=== PATIENT | female | born 1975 | race African-American/Black ===

== ENCOUNTER 2016-06-02 17:55 | Emergency (ER) | payer OTHER ==
[~2016-06-02] VITALS: Ht 157.5 cm; Wt 101.6 kg
[~2016-06-02 17:55] MED LIST: AZITHROMYCIN 2250 MG PO; CIPROFLOXACIN500 M1 PO; FENTANYL PA50 MCG/HR TP; FENTANYL PATCH75 MCG TOP; FENTANYL PATCH75 MCG TP; FLEXERIL PO; HUMIRA40 MG/0.8 SQ; LYRICA150 MG PO; MEDROL DOSPAK21 TAB PO; METFORMIN HCL1000 M1 PO; NABUMETONE 500500 M1 PO; NORTRIPTYLINE H50 MG PO; PERCOCET 10-321 EACH PO; PERCOCET 5-3251 EACH PO; PERCOCET 7.5-31 EACH PO; PHENERGAN 25 MG25 M1 PO; PREDNISONE 10 M10 M1 PO; PREDNISONE 20 M20 M1 PO; TESSALON PERLE100 MG PO; VENTOLIN HFA 1818 GM INH; ZANAFLEX4 M1 PO
[2016-06-02] MEDS ORDERED: FENTANYL 1100 MCG/HR TRANSDERM (18:19)
[2016-06-02] MEDS ORDERED: NAPROSYN500 MG PO (18:47)
== END 2016-06-02 19:13 | disposition home or self-care (01) ==
LOC: ER 17:55
DX: S16.1XXA Strain of muscle, fascia and tendon at neck level, initial encounter (principal); E11.9 Type 2 diabetes mellitus without complications; G43.909 Migraine, unspecified, not intractable, without status migrainosus; G89.29 Other chronic pain; Z90.49 Acquired absence of other specified parts of digestive tract; Z88.0 Allergy status to penicillin; W22.8XXA Striking against or struck by other objects, initial encounter; Y93.89 Activity, other specified; Y92.512 Supermarket, store or market as the place of occurrence of the external cause; Y99.8 Other external cause status

== ENCOUNTER 2016-10-01 11:15 | Emergency (ER) | payer OTHER ==
[~2016-10-01] VITALS: Ht 157.5 cm; Wt 101.2 kg
--- NOTE | ~2016-10-01 | EKG ---
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 : 1975 Requested By: Sy Hull Order Number: [id number] MD: Kain Dominguez Measurements Intervals [place] Rate: 63 P: 50 [place]: 137 QRS: 22 QRSD: 74 T: 4 QT: 403 QTc: 413 Interpretive Statements Sinus rhythm Nonspecific T wave abnormality Compared to ECG 07/23/2015 12:06:58 No significant changes Electronically Signed On 10-03-2016 12:47:47 CDT by Kain Dominguez [email or web address] <ELECTRONICALLY SIGNED> By: Kain Dominguez MD, [facility] 10/03/16 1247 1317 1317 Kain Dominguez MD, FACC /EPI
[~2016-10-01 11:15] MED LIST changes: +FENTANYL 1100 MCG/HR TRANSDERM; +NAPROSYN500 MG PO
[2016-10-01 12:22] LABS: MANUAL DIFF YES; MCH 25.2 pg (26.0-34.0); MCHC 31.4 g/dL (28.0-37.0); MCV 80.2 fL (80.0-100.0); PLATELET COUNT 211 thou/uL (150-400); RBC 4.36 mil/uL (4.20-5.00); RDW 17.1 % (10.5-14.5); WBC 3.5 thou/uL (4.0-11.0)
[2016-10-01 12:28] LABS: CALCIUM 8.9 mg/dL (8.5-10.1); CREATININE 0.7 mg/dL (0.6-1.0); POTASSIUM 3.6 mmol/L (3.5-5.1)
[2016-10-01 12:47] LABS: ABSOLUTE NEUTROPHILS 1.4 thou/uL (1.4-8.2); TOTAL CELL COUNT 100
[2016-10-01 12:48] LABS: ANISOCYTOSIS 1+
[2016-10-01] MEDS ORDERED: ZPAK PO (13:46)
== END 2016-10-01 14:06 | disposition home or self-care (01) ==
LOC: ER 11:15
PROVIDERS: Emergency Medicine
DX: J06.9 Acute upper respiratory infection, unspecified (principal); J04.0 Acute laryngitis; E11.9 Type 2 diabetes mellitus without complications; G43.909 Migraine, unspecified, not intractable, without status migrainosus; Z86.73 Personal history of transient ischemic attack (TIA), and cerebral infarction without residual deficits; Z90.49 Acquired absence of other specified parts of digestive tract; Z88.1 Allergy status to other antibiotic agents

== ENCOUNTER 2016-12-01 12:33 | Inpatient (IN) | payer OTHER ==
[~2016-12-01] VITALS: Ht 157.5 cm; Wt 101.2 kg
--- NOTE | ~2016-12-01 | EKG ---
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
--- NOTE | ~2016-12-01 | EKG ---
[address] [address] ELECTROCARDIOGRAM REPORT Name: TODD DOWNING Room #: 433-I ADM IN M.R.#: [id number] Admission: 12/01/16 Attend Phys: Jarret Haq DO Discharge: Date of : [birth year] Report #: [id number] THIS REPORT FOR: //name// 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
--- NOTE | ~2016-12-01 | EKG ---
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
--- NOTE | ~2016-12-01 | 2DMMODE ---
[facility] [address] [place] [address] 2 D/M-MODE ECHOCARDIOGRAM Name: TODD DOWNING Room #: 433-I ADM IN [facility].#: [id number] Admission: 12/01/16 Attend Phys: Jarret Haq, Discharge: Date of : [birth year] Date of Service: 12/05/16 0937 Report #: [id number] THIS REPORT FOR: //name// APPROVED REPORT Study performed: 12/05/2016 08:27:07 EXAM: Comprehensive 2D, Doppler, and color-flow Echocardiogram Patient Location: Echo lab Room #: [facility] Status: routine BSA: 2.01 HR: 56 bpm BP: 142/81 mmHg Rhythm: NSR Other Information Study Quality: Adequate Technically limited study due to UNCOOPERATIVE PATIENT. UNABLE TO COMPLETE EXAM. NOT ALL MEASUREMENTS TAKEN. Indications Syncope Chest Pain DM 2D Dimensions RVDd: 36.62 mm LVEF(%): 61.45 (>50%) IVSd: 9.08 (7-11mm) LVOT Diam: 20.46 (18-24mm) LVDd: 46.77 mm PWd: 9.01 (7-11mm) Ascending Ao: 29.29 (22-36mm) LVDs: 31.37 (25-40mm) Aortic Root: 33.26 mm Walden's LVEF: 61.45 % Volumes Left Atrial Volume (Systole) Single Plane 4CH: 55.84 mL Aortic Valve AoV Peak Frankie.: 1.27 m/s AO Peak Gr.: 6.42 mmHg Mitral Valve E/A Ratio: 3.0 [facility] [address] [address] 2 D/M-MODE ECHOCARDIOGRAM Name: TODD DOWNING Room #: 433-I [facility] IN [facility]#: [id number] Admission: 12/01/16 Attend Phys: Jarret Haq, Discharge: Date of : 79 Date of Service: 12/05/16 0937 Report #: [id number] MV [place]el. Time: 133.93 ms MV E Max Frankie.: 1.43 m/s MV A Frankie.: 0.48 m/s MV PHT: 38.84 ms Pulmonary Valve PV Peak Frankie.: 0.90 m/s PV Peak Gr.: 3.21 mmHg Tricuspid Valve TR Peak Frankie.: 2.79 m/s TR Peak Gr.: 31.03 mmHg Left Ventricle The left ventricle is normal size. There is normal LV segmental wall motion. There is normal left ventricular wall thickness. Left ventricular systolic function is normal. LVEF is 55-60%. This study is not technically sufficient to allow evaluation of the LV diastolic function. Right Ventricle The right ventricle is normal size. The right ventricular systolic function is normal. Atria The left atrium size is normal. The right atrium size is normal. Aortic Valve The aortic valve is normal in structure. No aortic regurgitation is present. There is no aortic valvular stenosis. Mitral Valve The mitral valve is normal in structure. Mild to moderate mitral regurgitation. Tricuspid Valve The tricuspid valve is normal in structure. Mild to moderate tricuspid regurgitation. Estimated PAP is 31mmHg plus the right atrial pressure. Pulmonic Valve The pulmonary valve is normal in structure. Trace pulmonic regurgitation. Great Vessels IVC is normal in size and collapses >50% with [facility] [address] [place] [address] 2 D/M-MODE ECHOCARDIOGRAM Name: TODD DOWNING Room #: 433-I ADM IN M.R.#: [id number] Admission: 12/01/16 Attend Phys: Jarret Haq, Discharge: Date of : 79 Date of Service: 12/05/[address] Report #: [id number] inspiration. Pericardium There is no pericardial effusion. <Conclusion> Left ventricular systolic function is normal. There is normal LV segmental wall motion. LVEF is 55-60%. The aortic valve is normal in structure. No aortic regurgitation or stenosis The mitral valve is normal in structure. Mild to moderate mitral regurgitation. Pulmonary artery pressure estimated at 35-40mmHg There is no pericardial effusion. <ELECTRONICALLY SIGNED> By: Kain Dominguez MD, [facility] 12/05/1637 6 6 aKin Dominguez MD, FACC /INF
--- NOTE | ~2016-12-01 | EKG ---
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: : 1975 Requested By: Esperanza Dudley Order Number: [id number] MD: Erick Andersen Measurements Intervals [place] Rate: 109 P: 66 [place]: 122 QRS: 46 QRSD: 98 T: 26 QT: 339 QTc: 457 Interpretive Statements Sinus tachycardia Consider right atrial enlargement Compared to ECG 10/01/2016 13:17:22 Sinus rhythm no longer present T-wave abnormality no longer present Electronically Signed On 12-01-2016 21:50:29 CDT by Erick Andersen [email or web address] <ELECTRONICALLY SIGNED> By: Erick Andersen MD 12/01/16 2150 10 10 Erick Andersen MD /ROSAURA
--- NOTE | ~2016-12-01 | HC ---
[facility] [place] [address] CONSULTATION Name: TODD DOWNING Room #: 433-I [facility] IN .R.#: [id number] Admission: 12/01/16 Attend Phys: Jarret Haq DO Discharge: 12/05/16 Date of : 79 Report #: [id number] THIS REPORT FOR: //name// CC: Valorie Irizarry DATE OF SERVICE: 12/02/2016 HISTORY OF PRESENT ILLNESS: This is a 40-year-old female patient who was evaluated by me for the headache. This patient's history came in a piecemeal fashion. History is not straightforward. The patient indicates that when she was in her early 20s, she was admitted to [facility] and there diagnosis was an aneurysm. Subsequently, she was transferred to [facility] and they did an angiography, but did not do any surgery. She said she has migraine headache, but the migraine headache is not very frequent, but reviewing the record in the computer will indicate that she had multiple visits to Emergency Room with some pain syndromes including headaches. She has been followed up by the pain management also. She indicates she has a severe headache, is in the back portion of the head. It is continuous. She does not look like in that much distress. Later on, she came with a history that she was admitted to [facility] in August. She said she got TPA. They did the workup on her and do not look like they found anything drastic on her. She did have a CT angiogram here and does not appear to be showing any definite abnormality. REVIEW OF SYSTEMS: Indicates the patient have these headaches. She says she has ankylosing spondylitis. She has back pain and sacroiliac pains. She has been seen by Pain Management in the past. She said she is disabled because of all this condition. She still has her periods. She is not on any contraception. This was a relevant 14-point review of system. PAST MEDICAL HISTORY: As described above, which is positive for an aneurysm which is not certain and she said she got TPA and that is not certain. We will try to get the record. FAMILY HISTORY: Negative for early age strokes. SOCIAL HISTORY: She does not smoke or drink any alcohol. PHYSICAL EXAMINATION: NEUROLOGIC: Indicates she is alert and responsive. She is able to follow simple commands. Her speech, concentration, fund of knowledge and memory is at her baseline. Cranial nerve examination 2-12 is unremarkable. She has symmetrical strength, sensation, reflexes and tone in all 4 extremities. There is no meningeal sign. There is no carotid bruit. I could not have a very good look at the patient's fundus. Otherwise, she is an obese individual who does [facility] [address] [place] [address] CONSULTATION Name: TODD DOWNING Room #: 433-I [facility] IN M.R.#: [id number] Admission: 12/01/16 Attend Phys: Jarret Haq DO Discharge: 12/05/16 Date of : 79 Report #: [id number] not have any dysmorphic features of eyes, ears and face. VITAL SIGNS: The patient's blood pressure is 109/72, respirations 18, pulse is 94, temperature is 97.8. CARDIAC: Unremarkable. LUNGS: She has no respiratory difficulty. LABORATORY DATA: Indicates white count has gone up to 12.2 that is probably because of steroids. CT angio was reviewed and was unremarkable. IMPRESSION: Chronic headaches. The whole history is confusing that needs to be further confirmed. RECOMMENDATIONS: 1. We will try to get the patient's record from [facility]. 2. I discussed the situation with her and discussed indication, potential complication and alternative of spinal tap or doing another angiogram. She does not want any of those. Chances of finding this being aneurysm is pretty low in this patient with the prior history ____ available. I agree with your plan of getting an MRI done. I will get an MRA done at the same time. She does not want to do a spinal tap at the moment, but she is willing to get the other workup done and we will try to get the record from [facility]. I discussed all of it with the patient in detail. Thank you very much for this referral. We will follow this patient along with you. More than 35 minutes of time was spent taking care of this patient today and majority of that time was spent counseling the patient on multiple matters summarized above. <ELECTRONICALLY SIGNED> By: Jerry Ramírez MD 12/05/16 1704 1036 0051 Jerry Ramírez MD /nt
[~2016-12-01 12:33] MED LIST changes: +ZPAK PO
[2016-12-01 12:34] VITALS: BP 116/84
[2016-12-01] MEDS ORDERED: DOXYCYCLINE 10100 MG PO (13:10)
[2016-12-01] MEDS ORDERED: NORTRIPTYLINE H75 M2 PO (13:10)
[2016-12-01] MEDS ORDERED: SIMPONI100 MG/1 M SUBQ (13:11)
[2016-12-01 16:28] LABS: HEMATOCRIT 37.7 % (37.0-47.0); MCH 26.1 pg (26.0-34.0); MCHC 31.9 g/dL (28.0-37.0); RBC 4.6 mil/uL (4.20-5.00); RDW 16.9 % (10.5-14.5); WBC 4.1 thou/uL (4.0-11.0)
[2016-12-01 16:35] LABS: CALCIUM 9.1 mg/dL (8.5-10.1); CREATININE 0.8 mg/dL (0.6-1.0); POTASSIUM 4.1 mmol/L (3.5-5.1)
[2016-12-01 16:41] LABS: PROTIME 10.5 Seconds (9.3-11.4)
[2016-12-01 19:32] VITALS: BP 118/79
[2016-12-01 20:42] VITALS: BP 111/66
[2016-12-02 03:46] VITALS: BP 109/72
[2016-12-02 07:46] LABS: ABSOLUTE NEUTROPHILS 10.4 thou/uL (1.4-8.2); BASOPHILS 0.2 % (0.0-2.0); HEMOGLOBIN 11.1 gm/dL (12.0-15.0); LYMPHOCYTES 10.4 % (24.0-44.0); MCH 25.8 pg (26.0-34.0); MCHC 31.6 g/dL (28.0-37.0); MCV 81.5 fL (80.0-100.0); MONOCYTES 4.2 % (1.0-8.0); PLATELET COUNT 261 thou/uL (150-400); POLYS 85.2 % (36.0-66.0); RDW 16.8 % (10.5-14.5); WBC 12.2 thou/uL (4.0-11.0)
[2016-12-02 07:58] LABS: CALCIUM 8.7 mg/dL (8.5-10.1); CREATININE 0.7 mg/dL (0.6-1.0); MAGNESIUM 1.6 mg/dL (1.8-2.4); MANUAL DIFF NO; POTASSIUM 3.8 mmol/L (3.5-5.1)
[2016-12-02 08:00] VITALS: BP 113/68
[2016-12-02 16:00] VITALS: BP 142/76
[2016-12-02 20:30] VITALS: BP 147/74
[2016-12-03] VITALS (8 sets, daily range): BP systolic 117–160; BP diastolic 63–91
[2016-12-03] MEDS ORDERED: MEDROLDOSEPACK PO (09:03)
[2016-12-04] VITALS (11 sets, daily range): BP systolic 112–171; BP diastolic 54–95
[2016-12-05 04:20] VITALS: BP 142/81
[2016-12-05] MEDS ORDERED: CELEBREX 200 M200 M1 PO (11:32)
[2016-12-05] MEDS ORDERED: DURAGESIC1 EAC3 TRANSDERM (11:32)
[2016-12-05] MEDS ORDERED: PERCOCET 10-321 EACH PO (11:32)
[2016-12-05 14:03] VITALS: BP 115/69
== END 2016-12-05 14:50 | disposition home or self-care (01) | DRG 102 ==
LOC: ER 12:33 → EROBS 19:18 → 4S 19:18 → ENTRNSPT 12-05 14:12 → EDTRNSPTSTS 12-05 14:15 → 4S 12-05 14:50
PROVIDERS: Nurse Practitioner; Physician Assistant
DX: G43.909 Migraine, unspecified, not intractable, without status migrainosus (principal); E43 Unspecified severe protein-calorie malnutrition; F68.10 Factitious disorder imposed on self, unspecified; Z68.41 Body mass index [BMI] 40.0-44.9, adult; J40 Bronchitis, not specified as acute or chronic; E11.9 Type 2 diabetes mellitus without complications; G89.29 Other chronic pain; I95.9 Hypotension, unspecified; G47.30 Sleep apnea, unspecified; D72.829 Elevated white blood cell count, unspecified; M45.9 Ankylosing spondylitis of unspecified sites in spine; Z83.3 Family history of diabetes mellitus; Z82.49 Family history of ischemic heart disease and other diseases of the circulatory system; Z80.9 Family history of malignant neoplasm, unspecified; Z79.899 Other long term (current) drug therapy; Z88.0 Allergy status to penicillin; Z86.73 Personal history of transient ischemic attack (TIA), and cerebral infarction without residual deficits; Z90.49 Acquired absence of other specified parts of digestive tract
CPT/HCPCS: 10100

== ENCOUNTER 2018-09-22 12:21 | Emergency (ER) | payer OTHER ==
[~2018-09-22] VITALS: Ht 157.5 cm; Wt 108.4 kg
[~2018-09-22 12:21] MED LIST changes: +CELEBREX 200 M200 M1 PO; +DOXYCYCLINE 10100 MG PO; +DURAGESIC1 EAC3 TRANSDERM; +MEDROLDOSEPACK PO; +NORTRIPTYLINE H75 M2 PO; +SIMPONI100 MG/1 M SUBQ
[2018-09-22] MEDS ORDERED: VOLTAREN GEL 1100 G2 TOP (12:52)
[2018-09-22] MEDS ORDERED: ZANAFLEX4 MG PO (12:52)
[2018-09-22 14:34] LABS: HEMATOCRIT 37.8 % (37.0-47.0); HEMOGLOBIN 12.7 gm/dL (12.0-15.0); MCH 29.1 pg (26.0-34.0); MCHC 33.5 g/dL (28.0-37.0); MCV 86.8 fL (80.0-100.0); RBC 4.36 mil/uL (4.20-5.00); RDW 13.8 % (10.5-14.5); WBC 3.9 thou/uL (4.0-11.0)
[2018-09-22 14:42] LABS: CALCIUM 8.8 mg/dL (8.5-10.1); CREATININE 0.7 mg/dL (0.6-1.0)
[2018-09-22 14:48] LABS: MAGNESIUM 1.7 mg/dL (1.8-2.4)
[2018-09-22 16:48] VITALS: BP 127/80
[2018-09-22] MEDS ORDERED: MEDROL4 M1 PO (16:51)
== END 2018-09-22 17:46 | disposition home or self-care (01) ==
LOC: ER 12:21
PROVIDERS: Emergency Medicine
DX: M45.9 Ankylosing spondylitis of unspecified sites in spine (principal); R10.2 Pelvic and perineal pain; E11.9 Type 2 diabetes mellitus without complications; G43.909 Migraine, unspecified, not intractable, without status migrainosus; Z90.49 Acquired absence of other specified parts of digestive tract; Z88.0 Allergy status to penicillin; Z86.73 Personal history of transient ischemic attack (TIA), and cerebral infarction without residual deficits; Z91.041 Radiographic dye allergy status

== ENCOUNTER 2019-01-30 14:55 | Emergency (ER) | payer OTHER ==
[~2019-01-30] VITALS: Ht 157.5 cm; Wt 108.0 kg
[~2019-01-30 14:55] MED LIST changes: +MEDROL4 M1 PO; +VOLTAREN GEL 1100 G2 TOP; +ZANAFLEX4 MG PO
[2019-01-30 18:27] LABS: URINE BILIRUBIN NEGATIVE (Negative); URINE BLOOD TRACE (Negative); URINE CLARITY CLEAR; URINE COLOR YELLOW; URINE GLUCOSE-RANDOM* NEGATIVE (Negative); URINE KETONES 2+ (Negative); URINE LEUKOCYTES-REFLEX NEGATIVE (Negative); URINE NITRITE-REFLEX NEGATIVE (Negative); URINE PROTEIN (DIPSTICK) 1+ (Negative); URINE SPECIFIC GRAVITY >= 1.030 (1.005-1.035); URINE UROBILINOGEN 0.2 E.U./dl (0.2-1.0)
[2019-01-30 18:28] LABS: BASOPHILS 0.9 % (0.0-2.0); EOSINOPHILS 0.1 % (0.0-3.0); HEMOGLOBIN 13.4 gm/dL (12.0-15.0); LYMPHOCYTES 18.3 % (24.0-44.0); MCH 28.5 pg (26.0-34.0); MCHC 32.8 g/dL (28.0-37.0); MCV 86.9 fL (80.0-100.0); MONOCYTES 11.5 % (1.0-8.0); PLATELET COUNT 229 thou/uL (150-400); POLYS 69.2 % (36.0-66.0); RBC 4.72 mil/uL (4.20-5.00); RDW 13.6 % (10.5-14.5); WBC 5.9 thou/uL (4.0-11.0)
[2019-01-30 18:35] LABS: ANION GAP 16 mmol/L (7-16); BUN 14 mg/dL (7-18); CALCIUM 9.4 mg/dL (8.5-10.1); CHLORIDE 100 mmol/L (98-107); CO2 20 mmol/L (21-32); CREATININE 0.9 mg/dL (0.6-1.0); GLUCOSE 101 mg/dL (74-106); POTASSIUM 3.5 mmol/L (3.5-5.1); SODIUM 136 mmol/L (136-145)
[2019-01-30 18:35] LABS: AMP/METHAMP Negative (Negative); BARBITURATES Negative (Negative); BENZODIAZEPINES Negative (Negative); COCAINE Negative (Negative); METHADONE Negative (Negative); OPIATES Negative (Negative); PCP Negative (Negative)
[2019-01-30 18:42] LABS: SQUAMOUS 0-3 Few /LPF (0-3)
[2019-01-30 18:43] LABS: BACTERIA-REFLEX 1-9 Few /HPF (None Seen); CASTS None Seen /LPF (None Seen); CRYSTALS None Seen /LPF (None Seen); URINE RBC 0-2 Rare /HPF (0-2); URINE WBC-REFLEX None Seen /HPF (0-5)
[2019-01-30 18:45] LABS: ALBUMIN 3.7 g/dL (3.4-5.0); MAGNESIUM 2.1 mg/dL (1.8-2.4); SGOT 17 U/L (15-37); SGPT 20 U/L (30-65); TOTAL BILIRUBIN 0.4 mg/dL (<0.1-1.0); TOTAL PROTEIN 9.2 g/dL (6.4-8.2); TROPONIN-I <0.06 ng/mL (<0.06)
[2019-01-30] MEDS ORDERED: ZOFRAN ODT4 MG PO ×3 (19:33→19:49)
[2019-01-30] MEDS ORDERED: PHENERGAN 25 MG25 MG PO ×3 (19:33→19:49)
[2019-01-30] MEDS ORDERED: MUCINEX D ER 11 EACH PO ×3 (19:33→19:49)
[2019-01-30] MEDS ORDERED: IMODIUM A-D2 MG PO ×3 (19:33→19:49)
[2019-01-30 20:03] VITALS: BP 146/87
--- NOTE | 2019-01-31 15:02 | EKG ---
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: [facility] : 1975 Requested By: Wan Whitfield Order Number: [id number] MD: Erick Andersen Measurements Intervals [place] Rate: 93 P: 71 [place]: 126 QRS: 40 QRSD: 78 T: 10 QT: 335 QTc: 417 Interpretive Statements Sinus rhythm LAE, consider biatrial enlargement Borderline T abnormalities, anterior leads Baseline wander in lead(s) V5,V6 Compared to ECG 12/04/2016 16:12:03 T-wave abnormality now present Electronically Signed On 01-31-2019 15:01:55 TITLE INSURANCE AGENT by Erick Andersen [email or web address] <ELECTRONICALLY SIGNED> By: Erick Andersen MD 01/31/19 1501 1459 1459 Erick Andersen MD /EPI
== END 2019-01-30 20:05 | disposition home or self-care (01) ==
LOC: ER 14:55
PROVIDERS: Emergency Medicine
DX: J06.9 Acute upper respiratory infection, unspecified (principal); A08.4 Viral intestinal infection, unspecified; R19.7 Diarrhea, unspecified